=== PATIENT | male | born 1990 | race Caucasian/White ===

== ENCOUNTER 2017-09-01 14:38 | Emergency (ER) | payer SELFPAY ==
[~2017-09-01] VITALS: Ht 170.2 cm; Wt 99.8 kg
[2017-09-01 15:32] VITALS: BP_SYST 159
--- NOTE | 2017-09-01 15:38 | NUR ---
Ambulated back to waiting room with good steady gait.
--- NOTE | 2017-09-01 16:09 | NUR ---
Patient to ER bed 3 to gown for evaluation. Side rails up. Report given to
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
--- NOTE | 2017-09-01 17:30 | NUR ---
Assessment remains unchanged, awaiting dispo.
[2017-09-01 18:15] VITALS: BP_SYST 154
--- NOTE | 2017-09-01 18:15 | NUR ---
Patient given written and verbal discharge instructions and verbalizes understanding. ER MD discussed with patient the results and treatment provided. Patient in stable condition. ID arm band removed. Rx of Ibuprofen, Flexeril given. Patient educated on pain management and to follow up with PMD. Pain Scale 2. Opportunity for questions provided and answered. Patient left ER ambulating with slow, steady gait in no acute distress.
== END 2017-09-01 18:15 | disposition home or self-care (01) ==
LOC: SED 14:38
DX: S16.1XXA Strain of muscle, fascia and tendon at neck level, initial encounter (principal); V89.2XXA Person injured in unspecified motor-vehicle accident, traffic, initial encounter; Y93.89 Activity, other specified; Y92.410 Unspecified street and highway as the place of occurrence of the external cause; Y99.8 Other external cause status; M06.9 Rheumatoid arthritis, unspecified
CPT/HCPCS: 72125-TC; 99284